=== PATIENT | male | born 1965 | race Caucasian/White ===

== ENCOUNTER 2019-07-02 11:11 | Emergency (ER) | payer BC, SELFPAY ==
[2019-07-02] VITALS (11 sets, daily range): BP systolic 115–140; BP diastolic 60–79; PULSE 57–73; RESP 15–21; TEMP 36.7; O2SAT 93–98
--- NOTE | ~2019-07-02 | US_ITS ---
US right upper quadrant DATE: 07/02/2019 12:28 INDICATION: Epigastric abdominal pain TECHNIQUE: Real-time imaging of the liver, pancreas, gallbladder fossa COMPARISON: None FINDINGS: There is fatty infiltration of the liver. No hepatic space-occupying mass lesion is evident . The pancreas is not visualized. The gallbladder is surgically absent. The common bile duct measures 6.2 mm, which is within normal range in a post cholecystectomy patient. IMPRESSION: Status post cholecystectomy Nonvisualization of the pancreas Reviewed, dictated and finalized at [facility]. Reviewed, dictated and finalized at [facility]. TAL PRE PRESS OPERATOR
--- NOTE | ~2019-07-02 | XR_ITS ---
EXAMINATION: XR chest 2V EXAM DATE: 07/02/2019 11:52 INDICATION: Midsternal epigastric pain. History of hypertension. TECHNIQUE: Frontal and lateral projections of the chest obtained and reviewed. Comparison is made to prior examination from 04/07/2019. FINDINGS: The lungs are clear. There are no pleural effusions. The cardiomediastinal silhouette is within normal limits. There is no pneumothorax suspected. Patient has diffuse idiopathic skeletal h yperostosis (DISH). IMPRESSION: No acute cardiopulmonary findings. Reviewed, dictated and finalized at [facility]. D OPERATIONS TECHNICIAN
--- NOTE | 2019-07-02 11:25 | ECG_ITS ---
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
--- NOTE | 2019-07-02 11:33 | ED.CHESTPAIN ---
HPI - Chest Pain General Chief Complaint: Chest Pain <Brady Ly MD - Last Filed: 07/02/19 12:42> Stated Complaint: CP <Brady Ly MD - Last Filed: 07/02/19 12:42> Time Seen by Provider: 07/02/19 11:29 <Brady Ly MD - Last Filed: 07/02/19 12:42> Source: patient and RN notes reviewed <Brady Ly MD - Last Filed: 07/02/19 12:42> Mode of arrival: ambulatory <Brady Ly MD - Last Filed: 07/02/19 12:42> Limitations: no limitations <Brady Ly MD - Last Filed: 07/02/19 12:42> History of Present Illness HPI narrative: Pt is a 54 y/o male with a Hx of anxiety, who presents to the ED with c/o substernal chest pain starting around 10:45 AM this morning. He notes that he was laying down to rest after returning home from work this morning when he suddenly developed an extreme tightness in his substernal chest. Pt states that his pain initially felt like gas, and notes that his pain lasted for roughly 20 minutes. He reports mild SOB and anxiety accompanying his pain, but denies any nausea, vomiting, diaphoresis, or increased LE edema. Pt states that he has a FHx of aortic aneurysm, and notes that he is concerned he may have an AAA. <Brady Ly MD - Last Filed: 07/02/19 12:42> MD complaint: chest pain <Brady Ly MD - Last Filed: 07/02/19 12:42> Onset (ago): hour(s) (1) <Brady Ly MD - Last Filed: 07/02/19 12:42> Timing of current episode: now resolved <Brady Ly MD - Last Filed: 07/02/19 12:42> Onset: during rest <Brady Ly MD - Last Filed: 07/02/19 12:42> Pain location: substernal <Brady Ly MD - Last Filed: 07/02/19 12:42> Quality: tightness <Brady Ly MD - Last Filed: 07/02/19 12:42> Associated symptoms: dyspnea and other (anxiety) <Brday Ly MD - Last Filed: 07/02/19 12:42> Related Data Allergies/Adverse Reactions: Allergies Allergy/AdvReac Type Severity Reaction Status Date / Time No Known Allergies Allergy Mild Verified 07/02/19 11:22 <Brady Ly MD - Last Filed: 07/02/19 12:42> Review of Systems Review of Systems: All systems reviewed & are unremarkable except as noted in HPI and below <Brady Ly MD - Last Filed: 07/02/19 12:42> Cardiovascular: Cardiovascular: Reports chest pain (substernal), Denies diaphoresis and Denies leg edema (acute LE edema) <Brady Ly MD - Last Filed: 07/02/19 12:42> Respiratory: Respiratory: Reports dyspnea <Brady Ly MD - Last Filed: 07/02/19 12:42> Gastrointestinal: Gastrointestinal: Denies nausea and Denies vomiting <Brady Ly MD - Last Filed: 07/02/19 12:42> Psychiatric: Psychiatric: Reports anxiety <Brady Ly MD - Last Filed: 07/02/19 12:42> PMFSH Past Medical History Medical History: Medical History (Updated 07/02/19 @ 15:28 by Trina Danielle MD) SEBASTIEN (generalized anxiety disorder) History of hepatitis B HTN (hypertension) Kidney stones Pneumonia <Brady Ly MD - Last Filed: 07/02/19 12:42> Surgical History Surgical History: Surgical History (Updated 07/02/19 @ 12:51 by Marcos Damon) H/O bariatric surgery Hx of cholecystectomy Hx of nephrolithotomy with removal of calculi <Brady Ly MD - Last Filed: 07/02/19 12:42> Family History Family History: Family History (Updated 11/28/16 @ 07:45 by DOCTOR UNKNOWN) Father Hypertension Family history of cardiovascular disease Mother Hypertension Sibling Hypertension <Brady Ly MD - Last Filed: 07/02/19 12:42> Social History Social History: Social History Smoking status: Former smoker Smoking end date: 06/03/10 Alcohol intake: current Substance use: never Gender identity (if verbalized by the patient): Male <Brady Ly MD - Last Filed: 07/02/19 12:42> Exam Narrative: Exam Narrative: General appearance: Well-developed, well-nou
[2019-07-02 11:34] LABS: Basophils Percent Auto 0.7 % (0.2-1.2); Eosinophils Absolute Auto 0.1 K/mm3 (0-0.3); Eosinophils Percent Auto 1.1 % (0-4.4); Hematocrit 41.5 % (42.0-52.0); Hemoglobin 13.6 g/dL (14.0-18.0); Immature Granulocyte Absolute 0.01 K/mm3 (0.00-0.031); Immature Granulocyte Percent A 0.2 % (0-0.5); Lymphocytes Absolute Auto 2.02 K/mm3 (0.9-3.2); Mean Corpuscular HGB Conc 32.8 g/dl (32-36); Mean Corpuscular Hemoglobin 30.8 pg (26-34); Mean Corpuscular Volume 93.9 fl (80-100); Mean Platelet Volume 9.1 fl (7.4-10.4); Monocytes Absolute Auto 0.5 K/mm3 (0.1-0.6); Monocytes Percent Auto 8.2 % (2.6-8.5); Neutrophils Absolute Auto 3.5 K/mm3 (1.3-6.7); Neutrophils Percent Auto 56.8 % (45.5-73.1); Platelet Count Result 209 k/mm3 (150-375); Red Blood Count 4.42 M/mm3 (4.6-6.20); Red Cell Distribution Width 12.6 % (11.5-14.5); White Blood Count 6.1 K/mm3 (4.5-10.0)
[2019-07-02 11:42] LABS: INR 0.9; Prothrombin Time 12.3 Seconds (11.1-14.7)
[2019-07-02 11:43] LABS: Partial Thromboplastin Time 24.4 SECONDS (22.3-36.8)
[2019-07-02 11:44] LABS: Blood Urea Nitrogen 16 mg/dL (9-20); Calcium 8.6 mg/dL (8.4-10.2); Carbon Dioxide 28 mmol/L (22-30); Chloride 100 mmol/L (98-107); Estimated Glomerular Filt Rate > 60; Glucose 119 mg/dL (75-110); Potassium 4.1 mmol/L (3.4-5.0); Sodium 137 mmol/L (137-145)
[2019-07-02 11:56] LABS: Troponin I < 0.012 ng/mL (0.000-0.034)
[2019-07-02 13:05] LABS: D Dimer 0.34 ug/mL (<0.48)
[2019-07-02 14:18] LABS: Add Urine Microscopic? YES; Appearance Urine Clear (Clear); Bacteria Urine Trace /hpf; Bilirubin Urine Negative (Negative); Blood Urine Negative (Negative); Color Urine Yellow (Yellow); Glucose Urine UA Negative (Negative); Ketones Urine Negative (Negative); Leukocyte Esterase Ur Trace LEU/UL (Negative); Mucus Urine Rare /lpf; Nitrate Urine Negative (Negative); Protein Urine Negative (Negative); RBC Urine 0-2 /hpf (0-2); Squamous Epithelial Cell Urine Occasional /hpf (Few); WBC Urine 16-20 /hpf
[2019-07-02 14:58] LABS: Troponin I < 0.012 ng/mL (0.000-0.034)
[2019-07-02] MEDS: ACETAMINOPHEN 325 MG TABLET 650 MG PO (15:55)
== END 2019-07-02 16:00 | disposition home or self-care (01) ==
PROVIDERS: Emergency Medicine; Emergency Provider Emergency Medicine; PCP Family Medicine
DX: R07.2 Precordial pain (principal); I10 Essential (primary) hypertension; Z86.19 Personal history of other infectious and parasitic diseases; Z87.442 Personal history of urinary calculi; Z98.84 Bariatric surgery status; Z87.891 Personal history of nicotine dependence; E66.01 Morbid (severe) obesity due to excess calories
CPT/HCPCS: 36415; 71046; 76705; 80048; 81001; 84484; 85025; 85380; 85610; 85730; 87086; 93005; 99284; A9270